=== PATIENT | male | born 1935 | race Caucasian/White ===

== ENCOUNTER 2018-11-18 16:34 | Emergency (ER) | payer OTHER ==
[~2018-11-18 16:34] MED LIST: DEXAMETHASONE 2 MG TAB PO SCH; TRANEXAMIC ACID 650 MG TAB PO SCH
[2018-11-18] MEDS ORDERED: NS 500 ML IV ONE (16:36)
[2018-11-18 17:14] LABS: PLATELET COUNT 186 10^3/uL (150-400); PROTIME(PATIENT) 13.4 SEC (12.0-15.0)
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
[2018-11-18] MEDS ORDERED: TRANEXAMIC ACID 650 MG TAB PO ONE ×3 (19:01→19:19)
[2018-11-18] MEDS ORDERED: DEXAMETHASONE 4 MG TAB PO ONE ×3 (19:02→19:19)
[2018-11-18 20:09] VITALS: BP 117/71
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
== END 2018-11-18 20:09 | disposition home or self-care (01) ==
DX: S06.5X9A Traumatic subdural hemorrhage with loss of consciousness of unspecified duration, initial encounter (principal); I10 Essential (primary) hypertension; E78.5 Hyperlipidemia, unspecified; E86.9 Volume depletion, unspecified; V19.9XXA Pedal cyclist (driver) (passenger) injured in unspecified traffic accident, initial encounter; Y92.9 Unspecified place or not applicable; Y93.9 Activity, unspecified; Y99.9 Unspecified external cause status
CPT/HCPCS: 82565-PO

== ENCOUNTER → 2018-11-27 | Outpatient (CLI) | payer OTHER | LOC: FIMAGING 08:55 | PROVIDERS: ATTEND Physician Assistant Surgical | DX: S06.5X0D Traumatic subdural hemorrhage without loss of consciousness, subsequent encounter (principal) ==

== ENCOUNTER 2018-12-08 18:48 | Emergency (ER) | payer OTHER ==
--- NOTE | 2018-12-08 18:59 | EDPHY ---
H & P Stated Complaint: increased head "fullness" and balance issues x 1 day-- subdural 11/18/18 Time Seen by Provider: 12/08/18 18:59 HPI/ROS: HPI CHIEF COMPLAINT: Increased fullness and head recent subdural hemorrhage HISTORY OF PRESENT ILLNESS: Very pleasant 83-year-old male, who unfortunately had a subdural hemorrhage rather large seen on an outpatient ordered MRI for gait instability back in October. Subsequently seen in the emergency room on November 18 and placed on T x-ray by Neurosurgery and followed outpatient by Neurosurgery. Patient presents emergency room after calling Neurosurgery today as he has had some increasing fullness in the right side of his head and a little bit more gait instability states at times he feels off balance. He is concerned that the subdural hemorrhage may have gotten bigger. Neurosurgery referred him to the emergency room for urgent CT scan. Here in emergency room the patient appears well nontoxic no acute distress has a normal neurological exam is able to have a normal gait on exam denies significant headache nausea vomiting focal weakness or focal numbness or tingling. No visual disturbance. No chest pain or shortness of breath. Past Medical History: Subdural hemorrhage diagnosed Shannan Bhagat her November 18 Past Surgical History: No recent surgery Social History: Denies drugs alcohol tobacco. Family History: Noncontributory ROS REVIEW OF SYSTEMS: 10 Systems were reviewed and negative with the exception of the elements mentioned in the history of present illness. Exam Constitutional elderly, nontoxic triage nursing summary reviewed, vital signs reviewed, awake/alert. Eyes normal conjunctivae and sclera, EOMI, PERRLA. HENT normal inspection, atraumatic, moist mucus membranes, no epistaxis, neck supple/ no meningismus, no raccoon eyes. Respiratory clear to auscultation bilaterally, normal breath sounds, no respiratory distress, no wheezing. Cardiovascular rate normal, regular rhythm, no murmur, no edema, distal pulses normal. Gastrointestinal soft, non-tender, no rebound, no guarding, normal bowel sounds, no distension, no pulsatile mass. Genitourinary no CVA tenderness. Musculoskeletal no midline vertebral tenderness, full range of motion, no calf swelling, no tenderness of extremities, no meningismus, good pulses, neurovascularly intact. Skin pink, warm, & dry, no rash, skin atraumatic. Neurologic awake, alert and oriented x 3, AAOx3, moves all 4 extremities equally, motor intact, sensory intact, CN II-XII intact, normal cerebellar, normal vision, normal speech. Psychiatric normal mood/affect. Heme/Lymph/Immune no lymphadenopathy. Differential Diagnosis: Includes but is not limited to in a particular order recurrent subdural hemorrhage epidural, traumatic subarachnoid, increasing subdural hemorrhage Medical Decision Making: Plan for this patient CT scan head without contrast. Re-evaluation: CT scan head without contrast is stable from his previous CT scan the subdural hemorrhages no larger or acutely changed. Called to me by Dr. Nicholas 2031: Discussed the CT results with Neurosurgery Dr. Emery. Discussed the CT scan is stable. He feels comfortable allowing the patient to go home. The patient ambulated well here without any difficulty Has a normal neurological exam Patient is not vomiting Updated the patient to the CT scan is stable. Return precautions discussed with the patient I did offer the patient observation tonight in the hospital however he has declined this and wants to go home. Daughter at bedside would like to go home I do recommend he has close follow-up with Neurosurgery. Subdural. Stable today on the CT scan. Source: Patient - Medical/Surgical History Hx Asthma: No Hx Chronic Respiratory Disease: No Hx Diabetes: No Hx Cardiac Disease: No Hx Renal Disease: No Hx Cirrhosis: No Hx Alcoholism: No Hx HIV/AIDS: No Hx Splenectomy or Spleen Trauma: No Other PMH: htn. hyperlipidemia. subdural 11/18/18 - Social History Smoking Status: Never smoked Constitutional: Initial Vital Signs Temperature (C) 36.7 C 12/08/18 18:55 Heart Rate 75 12/08/18 18:55 Respiratory Rate 18 12/08/18 18:55 Blood Pressure 127/69 H 12/08/18 18:55 O2 Sat (%) 98 12/08/18 18:55 O2 Delivery Mode Room Air Allergies/Adverse Reactions: No Known Allergies Allergy (Verified 11/18/18 18:58) Home Medications: Medication Instructions Recorded Cholecalciferol Vit D3 [Vitamin D3 4,000 units PO DAILY 11/18/18 (*)] Lisinopril [Zestril 20 mg (*)] 20 mg PO DAILY 11/18/18 Simvastatin 20 mg PO HS 11/18/18 Medical Decision Making - Diagnostics Imaging Results: Imaging Impressions Head CT 12/08/18 19:11 Impression: Stable large acute on chronic right frontoparietal subdural hematoma with trace right left midline shift with no new hemorrhage is identified. Findings discussed with Jose Bishop MD 12/08/2018 at 20:19. Departure - Departure Disposition: Home, Routine, Self-Care Clinical Impression: Subdural hematoma Condition: Good Instructions: Subdural Hematoma (ED) Additional Instructions: 1. Return to the emergency room if you have worsening symptoms this includes vomiting, worsening headache, worsening gait. 2. Please follow up with Neurosurgery Referrals: Garfield Floyd MD [Primary Care Provider] - As per Instructions Reuben Emery MD [Medical Doctor] - As per Instructions
[2018-12-08] MEDS ORDERED: ACETAMINOPHEN 500 MG TAB PO ONE (20:35)
[2018-12-08 21:00] VITALS: BP 115/64
== END 2018-12-08 20:58 | disposition home or self-care (01) ==
DX: I62.00 Nontraumatic subdural hemorrhage, unspecified (principal)

== ENCOUNTER → 2018-12-26 | Outpatient (CLI) | payer OTHER | LOC: FIMAGING 07:37 | PROVIDERS: ATTEND Neurological Surgery | DX: I62.03 Nontraumatic chronic subdural hemorrhage (principal) ==

== ENCOUNTER → 2019-01-23 | Outpatient (CLI) | payer OTHER | LOC: FIMAGING 07:38 | PROVIDERS: ATTEND Neurological Surgery | DX: I62.03 Nontraumatic chronic subdural hemorrhage (principal); R90.82 White matter disease, unspecified ==